=== PATIENT | male | born 1970 | race Two or more races ===

== ENCOUNTER 2020-08-20 19:30 | Emergency (ER) | payer OTHER ==
[~2020-08-20] VITALS: Ht 172.7 cm; Wt 77.1 kg
== END 2020-08-20 23:23 | disposition home or self-care (01) ==
LOC: ER 19:30
DX: M79.605 Pain in left leg (principal)

== ENCOUNTER 2020-08-21 08:24 | Emergency (ER) | payer OTHER ==
[~2020-08-21] VITALS: Ht 175.3 cm; Wt 98.9 kg
== END 2020-08-21 13:15 | disposition home or self-care (01) ==
LOC: ER 08:24
DX: M79.605 Pain in left leg (principal)